=== PATIENT | female | born 2000 | race Caucasian/White ===

== ENCOUNTER 2022-08-19 16:13 | Emergency (ER) | payer OTHER, SELFPAY ==
[2022-08-19 16:25] VITALS: BP 111/70; PULSE 86; RESP 18; TEMP 37; O2SAT 99
--- NOTE | 2022-08-19 17:15 | ED.LOWEXIN ---
HPI - Extremity Injury (Lower) General Chief Complaint: Extremity Injury, Lower Stated Complaint: left side hip pain from prev injury Time Seen by Provider: 08/19/22 17:15 Source: patient, RN notes reviewed and old records reviewed Mode of arrival: ambulatory Limitations: no limitations History of Present Illness HPI Narrative: [id number] female who presents to [facility] care with complaints of left sided hip pain which is in left groin and extends to outer left hip and to left back region. 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 Patient reports that xrays were one when she was at [place] for basic training. Patient reports that she is from [place] and is in area working travel job as [employer]. Patient reports that she was at [employer] and experienced a pop in her hip area after doing a 4 mile run 2 weeks ago. Patient reports that pain to left hip area is sharp ache and dull, has used ice, heat, Tylenol and Ibuprofen and PT. Here today to get note for restrictions. Patient instructed she needs to get films and reports and see an orthopedic for further evaluation. Patient states that she plans to see if can find one in [facility] since close to home. Patient states pain has increased some today bothered by sitting too long also MD complaint: hip injury (past) Onset (ago): week(s) (initial 2 years ago, 2 weeks increase in pain) Severity scale (1-10): 4 Treatments prior to arrival: cold therapy, NSAIDS and other (heat, PT) Related Data Home Medications Medication Instructions Recorded Confirmed levonorgestrel 0.15 mg-ethinyl See Rx Instructions .Route .COMPLEX 08/19/22 08/19/22 estradiol 30 mcg tablets,3 mos pack(91) Allergies Allergy/AdvReac Type Severity Reaction Status Date / Time No Known Allergies Allergy Verified 08/19/22 16:56 Review of Systems Review of Systems: CONSTITUTIONAL: Denies fever, chills, or sweats. CARDIOVASCULAR: Denies chest pain, palpitations, or edema. RESPIRATORY: Denies cough or dyspnea. SKIN: Denies rash or itching. Denies laceration or abrasions MUSCULOSKELETAL: Reports pain in left groin radiating to left hip and around to left lower back NEUROLOGIC: Denies numbness, or weakness. All systems reviewed & are unremarkable except as noted in HPI and below PMFSH Past Medical History Medical History (Updated 08/23/22 @ 09:52 by Viola Brown NP) Labral tear of left hip joint Social History Social History (Updated 08/23/22 @ 09:53 by Viola Brown NP) Smoking status: Never smoker Alcohol intake: current Alcohol use details: rare social Substance use: never Living arrangements: alone Gender identity (if verbalized by the patient): Female Comments At time of signature, agree with nursing past medical, surgical, social and family history. There is no relevant family history pertinent to the presenting complaint Exam Narrative: GENERAL: Well-appearing, well-nourished, and in no acute distress. HEAD: Normocephalic, atraumatic. EYES: PERRLA, conjunctivae clear NECK: Supple. CHEST: Speaks in full sentences. No respiratory distress. HEART: Regular rate and rhythm. Normal and equal peripheral pulses. EXTREMITIES: left leg has normal strength and sensation, normal range of motion. No edema or ecchymosis. 5/5 strength with normal flexion and extension. Normal sensation with sensitivity to light touch and pain.left hip/groin point tenderness.? ?No open wounds, no skin tenting, no devitalized tissue or atrophy, no trophic changes, no obvious deformity, alignment normal, nearby joints and structures intact. Distal pulses palpable and equal bilaterally, skin warm, dry, pink. Capillary refill less than 3 seconds. Course Course Emergency Course: Patient is aware of diagnosis, understands and agrees to treatment plan. Anticipatory guidance given. Patient agrees to fo
== END 2022-08-19 17:45 | disposition home or self-care (01) ==
PROVIDERS: Emergency Provider Registered Nurse
DX: M25.552 Pain in left hip (principal)
CPT/HCPCS: 99213; G0463